=== PATIENT | female | born 1990 | race Caucasian/White ===

== ENCOUNTER 2018-02-25 15:02 | Emergency (ER) | payer OTHER ==
[2018-02-25 15:12] VITALS: BP 123/83
--- NOTE | 2018-02-25 15:21 | UC ---
Throat Pain/Nasal Mickey HPI - HPI Summary HPI Summary: cold symptoms with nasal congestion for 2 weeks then 5-6 days ago right side ear ache and sore throat - History of Current Complaint Chief Complaint: UCGeneralIllness Stated Complaint: SORE THROAT Time Seen by Provider: 02/25/18 15:13 Hx Obtained From: Patient Hx Last Menstrual Period: 3-4 weeks ago ?: No Onset/Duration: Gradual Onset, Lasting Weeks - has been sick with uri for 2 weeks, Worse Since - past 6 days Severity: Moderate Pain Intensity: 5 Pain Scale Used: 0-10 Numeric Cough: Nonproductive Associated Signs & Symptoms: Positive: Negative - Allergies/Home Medications Allergies/Adverse Reactions: Allergies Allergy/AdvReac Type Severity Reaction Status Date / Time No Known Allergies Allergy Verified 02/25/18 15:12 Home Medications: Home Medications Pheniramine/P-Eph/Acetaminophn [Theraflu Flu & Sore Throat] 1 arabella PO 02/25/18 [ History] PMH/Surg Hx/FS Hx/Imm Hx Previously Healthy: Yes - Surgical History Surgical History: Yes Surgery Procedure, Year, and Place: 1998 TONSILECTOMY ADENOIDECTOMY. Cholecystectomy Apr 11 2012 - Family History Known Family History: Positive: Hypertension, Diabetes - Social History Occupation: Employed Full-time Lives: With Family Alcohol Use: Rare Substance Use Type: None Smoking Status (MU): Former Smoker Length of Time of Smoking/Using Tobacco: 11 YEAR HX 1 PACK EVERY 3 DAYS Have You Smoked in the Last Year: Yes When Did the Patient Quit Smoking/Using Tobacco: SUMMER 2014 - Immunization History Most Recent Influenza Vaccination: SEVERAL YEARS AGO Most Recent Tetanus Shot: UTD Review of Systems All Other Systems Reviewed And Are Negative: Yes Constitutional: Positive: Negative Skin: Positive: Negative Eyes: Positive: Negative ENT: Positive: Sore Throat - right side, Ear Ache - right Respiratory: Positive: Negative Cardiovascular: Positive: Negative Gastrointestinal: Positive: Negative Genitourinary: Positive: Negative Motor: Positive: Negative Neurovascular: Positive: Negative Musculoskeletal: Positive: Negative Neurological: Positive: Negative Psychological: Positive: Negative Is Patient Immunocompromised?: No Physical Exam Triage Information Reviewed: Yes Appearance: Well-Appearing, No Pain Distress, Well-Nourished Vital Signs: Initial Vital Signs Temp 97.5 F 02/25/18 15:07 Pulse 86 02/25/18 15:07 Resp 18 02/25/18 15:07 BP 123/83 02/25/18 15:07 Pulse Ox 99 02/25/18 15:07 Vital Signs Reviewed: Yes Eye Exam: Normal Eyes: Positive: Conjunctiva Clear ENT Exam: Normal ENT: Positive: Normal ENT inspection, Hearing grossly normal, Pharynx normal, TMs normal - left, TM bulging - right, Uvula midline. Negative: Tonsillar swelling, Tonsillar exudate, Trismus, Muffled voice, Hoarse voice, Dental tenderness, Sinus tenderness Dental Exam: Normal Neck exam: Normal Neck: Positive: Supple, Nontender, No Lymphadenopathy Respiratory Exam: Normal Respiratory: Positive: Chest non-tender, Lungs clear, Normal breath sounds, No respiratory distress, No accessory muscle use Cardiovascular Exam: Normal Cardiovascular: Positive: RRR, No Murmur, Pulses Normal, Brisk Capillary Refill Musculoskeletal Exam: Normal Musculoskeletal: Positive: Strength Intact, ROM Intact, No Edema Neurological Exam: Normal Neurological: Positive: Alert, Muscle Tone Normal Psychological Exam: Normal Skin Exam: Normal Throat Pain/Nasal Course/Dx - Course Assessment/Plan: sudafed and robitussion, tylenol, ibuprofen, amoxicillin increase fluids follow with pcp prn - Differential Dx/Diagnosis Provider Diagnoses: right serous otitis media Discharge - Sign-Out/Discharge Documenting (check all that apply): Patient Departure All imaging exams completed and their final reports reviewed: No Studies - Discharge Plan Condition: Stable Disposition: HOME Prescriptions: Amoxicillin PO (*) [Amoxicillin 875 MG (*)] 875 mg PO BID #20 tab Patient Education Materials: Decongestant/Expectorant (By mouth), Serous Otitis Media (ED) Referrals: [facility] [place] [facility] [place]] - If Needed - Billing Disposition and Condition Condition: STABLE Disposition: Home - Attestation Statements Provider Attestation: I was available for consult. This patient was seen by the ENRIQUE. The patient was not presented to, seen by, or examined by me. -Caro
== END 2018-02-25 15:34 | disposition home or self-care (01) ==
LOC: UCEAST 15:02
DX: H65.91 Unspecified nonsuppurative otitis media, right ear (principal); Z87.891 Personal history of nicotine dependence
CPT/HCPCS: 99212; G0463

== ENCOUNTER 2018-08-27 08:23 | Emergency (ER) | payer OTHER ==
--- NOTE | 2018-08-27 08:41 | ED ---
Complex/Multi-Sys Presentation - HPI Summary HPI Summary: This patient is a 27 year old F presenting to ED with a chief complaint of pain that starts in his L neck and down under her L arm and then to the upper back and shoulder since this morning when she woke up with it. The CC is described as shooting pain and pressure. The patient rates the pain 4/10 in severity. Symptoms aggravated by deep breaths. Symptoms alleviated by sitting straight and putting pressure on the area under her L arm. Patient reports numbness on her L upper arm and in her L fingers. Patient denies recent injury. She does work at the [employer] and is constantly lifting crates of apples so she might have pulled something. - History Of Current Complaint Chief Complaint: EDGeneral Time Seen by Provider: 08/27/18 08:31 Hx Obtained From: Patient Onset/Duration: Sudden Onset, Lasting Hours, Still Present Timing: Constant Severity Currently: Mild - 4/10 Severity Initially: Mild Location: Pain At: - starts in the L neck, Radiates To: - down under the L arm and to the upper back and shoulder Aggravating Factor(s): deep breaths Alleviating Factor(s): sitting straight and putting pressure on the area under her L arm Associated Signs And Symptoms: Positive: Other - Patient reports numbness on her L upper arm and in her L fingers. Patient denies recent injury. - Allergies/Home Medications Allergies/Adverse Reactions: Allergies Allergy/AdvReac Type Severity Reaction Status Date / Time No Known Allergies Allergy Verified 08/27/18 08:30 Home Medications: Home Medications NK [No Home Medications Reported] 08/27/18 [History Confirmed 08/27/18] PMH/Surg Hx/FS Hx/Imm Hx Endocrine/Hematology History: Denies: Hx Diabetes, Hx Thyroid Disease Cardiovascular History: Denies: Hx Hypertension Respiratory History: Denies: Hx Asthma, Hx Chronic Obstructive Pulmonary Disease (COPD) GI History: Denies: Hx Ulcer Sensory History: Denies: Hx Contacts or Glasses, Hx Hearing Aid Opthamlomology History: Denies: Hx Contacts or Glasses - Surgical History Surgery Procedure, Year, and Place: 1997 TONSILECTOMY ADENOIDECTOMY. Cholecystectomy Apr 11 2012 Hx Anesthesia Reactions: No Infectious Disease History: No Infectious Disease History: Denies: Hx Clostridium Difficile, Hx Hepatitis, Hx Human Immunodeficiency Virus (HIV), Hx of Known/Suspected MRSA, Hx Shingles, Hx Tuberculosis, Hx Known/ Suspected VRE, Hx Known/Suspected VRSA, History Other Infectious Disease, Traveled Outside the [place] in Last 30 Days - Family History Known Family History: Positive: Hypertension, Diabetes - Social History Alcohol Use: Rare Substance Use Type: Reports: None Smoking Status (MU): Former Smoker Length of Time of Smoking/Using Tobacco: 11 YEAR HX 1 PACK EVERY 3 DAYS Have You Smoked in the Last Year: Yes Review of Systems Positive: Other - pain that starts in his L neck and down under her L arm and then to the upper back and shoulder; denies any recent injury but 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 FROM. Respiratory: Clear to auscultation, no signs of respiratory distress Cardiovascular: Normal S1, S2. No murmurs. Normal distal pulses in tibial and radial bilaterally. Abdomen: Soft, nontender, normal active bowel sounds present Musculoskeletal: Strength/ROM Intact. FROM of the L shoulder. Mild tenderness over the L upper chest near the shoulder. Neurological: A&Ox3, awake and alert, mentation is normal, speech is fluent and appropriate Psychiatric: affect is normal, does not appear anxious or depressed Triage Information Reviewed: Yes Vital Signs On Initial Exam: Initial Vitals Temp Pulse Resp BP Pulse Ox 98.5 F 75 18 133/81 97 08/27/18 08:25 08/27/18 08:25 08/27/18 08:25 08/27/18 08:25 08/27/18 08:25 Vital Signs Reviewed: Yes Diagnostics - Vital Signs Vital Signs Temp Pulse Resp BP Pulse Ox 08/27/18 08:25 98.5 F 75 18 133/81 97 - Laboratory Lab Statement: Any lab studies that have been ordered have been reviewed, and results considered in the medical decision making process. - Radiology CXR Radiology Interpretation Completed By: Radiologist Summary of Radiographic Findings: NO EVIDENCE FOR ACTIVE CARDIOPULMONARY DISEASE. Dr. Ahmadi has reviewed this radiology report. L shoulder XR Radiology Interpretation Completed By: Radiologist Summary of Radiographic Findings: Negative exam. Dr. Ahmadi has reviewed this radiology report. Re-Evaluation - Re-Evaluation First Eval Re-Evaluation Time: 09:20 Comment: Discussed results and plan for discharge. Patient understands and agrees with this plan. Complex Multi-Symp Course/Dx Assessment/Plan: This patient is a 27 year old F presenting to ED with a chief complaint of pain that starts in his L neck and down under her L arm and then to the upper back and shoulder since this morning when she woke up with it. CXR reveals NO EVIDENCE FOR ACTIVE CARDIOPULMONARY DISEASE. L shoulder XR reveals negative exam. Patient will be discharged with dx of chest wall pain. Patient understands and agrees with this plan. - Diagnoses Differential Diagnoses/HQI/PQRI: Other - chest wall pain Provider Diagnoses: Chest wall pain Discharge - Sign-Out/Discharge Documenting (check all that apply): Patient Departure - discharge Patient Received Moderate/Deep Sedation with Procedure: No - Discharge Plan Condition: Stable Disposition: HOME Patient Education Materials: Chest Wall Pain (ED) Referrals: [facility] [Outside] - 3 Days (if not better) - Billing Disposition and Condition Condition: STABLE Disposition: Home - Attestation Statements Document Initiated by Vane: Yes Documenting Scribe: Ajay Wiseman Provider For Whom Vane is Documenting (Include Credential): Reyes Ahmadi MD Scribe Attestation: Ajay Velasco, scribed for Reyes Ahmadi MD on 08/27/18 at 1704. Scribe Documentation Reviewed: Yes Provider Attestation: The documentation as recorded by the Ajay adair accurately reflects the service I personally performed and the decisions made by me, Reyes Ahmadi MD Status of Scribe Document: Viewed
[2018-08-27 09:25] VITALS: BP 112/67
== END 2018-08-27 09:24 | disposition home or self-care (01) ==
LOC: ED 08:23
DX: R07.89 Other chest pain (principal); Z87.891 Personal history of nicotine dependence
CPT/HCPCS: 71046; 99281

== ENCOUNTER 2019-02-04 12:42 | Emergency (ER) | payer OTHER ==
[2019-02-04 13:16] VITALS: BP 123/62
--- NOTE | 2019-02-04 13:32 | UC ---
Respiratory Complaint HPI - HPI Summary HPI Summary: 28-year-old female who has had cold symptoms for approximately 2 weeks. She states it started in her head with head congestion sinus pressure but that has resolved and it is now in her lungs as more of a dry harsh cough. She states she has some chest soreness when she coughs. Cough is nonproductive. She no longer has a fever. He is a nonsmoker. - History of Current Complaint Chief Complaint: UCRespiratory Stated Complaint: COUGH Time Seen by Provider: 02/04/19 13:32 Hx Obtained From: Patient Hx Last Menstrual Period: 01/19/19 ?: No Onset/Duration: Gradual Onset Timing: Intermittent Episodes Severity Initially: Mild Severity Currently: Mild Pain Intensity: 4 Character: Cough: Nonproductive Aggravating Factors: Nothing Alleviating Factors: Nothing Associated Signs And Symptoms: Positive: URI, Nasal Congestion, Sinus Discomfort - Patient states she had head congestion and sinus discomfort the first few days but that has resolved. She mostly now has a harsh cough. - Allergies/Home Medications Allergies/Adverse Reactions: Allergies Allergy/AdvReac Type Severity Reaction Status Date / Time No Known Allergies Allergy Verified 02/04/19 13:16 Home Medications: Home Medications guaiFENesin [Mucinex] 1 tab PO ONCE PRN 02/04/19 [History Confirmed 02/04/19] PMH/Surg Hx/FS Hx/Imm Hx Previously Healthy: Yes - Surgical History Surgical History: Yes Surgery Procedure, Year, and Place: 1997 TONSILECTOMY ADENOIDECTOMY. Cholecystectomy Apr 11 2012 - Family History Known Family History: Positive: Hypertension, Diabetes - Social History Alcohol Use: Occasionally Substance Use Type: None Smoking Status (MU): Former Smoker Length of Time of Smoking/Using Tobacco: 11 YEAR HX 1 PACK EVERY 3 DAYS Have You Smoked in the Last Year: Yes When Did the Patient Quit Smoking/Using Tobacco: SUMMER 2014 - Immunization History Most Recent Influenza Vaccination: SEVERAL YEARS AGO Most Recent Tetanus Shot: UTD Review of Systems All Other Systems Reviewed And Are Negative: Yes Constitutional: Positive: Fever - Fever in the beginning of symptoms but no longer. ENT: Positive: Nasal Discharge, Sinus Congestion - Head and sinus congestion and pain earlier in the illness but no longer., Sinus Pain/Tenderness Respiratory: Positive: Cough - Nonproductive cough with some chest wall soreness when she is coughing. Is Patient Immunocompromised?: No Physical Exam Triage Information Reviewed: Yes Appearance: Well-Appearing, No Pain Distress, Well-Nourished Vital Signs: Initial Vital Signs Temp 98.8 F 02/04/19 13:12 Pulse 89 02/04/19 13:12 Resp 18 02/04/19 13:12 BP 123/62 02/04/19 13:12 Pulse Ox 97 02/04/19 13:12 Vital Signs Reviewed: Yes Eyes: Positive: Conjunctiva Clear ENT: Positive: Hearing grossly normal, Pharynx normal, Nasal drainage - Minimal clear nasal coryza. Sinuses nontender, TMs normal, Uvula midline Neck exam: Normal Neck: Positive: Supple, Nontender, No Lymphadenopathy Respiratory: Positive: Lungs clear, Normal breath sounds, No respiratory distress, No accessory muscle use - Harsh nonproductive cough. Cardiovascular: Positive: RRR, No Murmur, Pulses Normal, Brisk Capillary Refill Musculoskeletal Exam: Normal Neurological Exam: Normal Psychological Exam: Normal Skin Exam: Normal Respiratory Course/Dx - Course Course Of Treatment: Chest x-ray:FINDINGS: The lungs are clear. There is no pleural effusion. The cardiomediastinal silhouette is within normal limits. The upper abdominal contents are normal. Osseous structures are unremarkable. IMPRESSION: No acute cardiopulmonary process by radiograph The patient is comfortable here although she does have a harsh cough. Abdomen to treat her with 5 days of prednisone 40 mg daily. I'm also going to give her prescription for benzonatate to use 3 times a day over the next few days as needed for cough. - Differential Dx/Diagnosis Provider Diagnosis: URI (upper respiratory infection) Discharge ED - Sign-Out/Discharge Documenting (check all that apply): Patient Departure All imaging exams completed and their final reports reviewed: Yes - Discharge Plan Condition: Good Disposition: HOME Prescriptions: Benzonatate CAP* [Tessalon 100 MG CAP*] 100 mg PO TID PRN 7 Days #21 cap PRN Reason: Cough predniSONE [Prednisone 20 MG TAB] 40 mg PO DAILY 5 Days #10 tablet Patient Education Materials: Upper Respiratory Infection (DC) Referrals: No Primary Care Phys,NOPCP [Primary Care Provider] - [facility] [Outside] Additional Instructions: Increase fluids, take the prednisone with food, follow-up with [facility] if no improvement by Monday or if you start running a fever. - Billing Disposition and Condition Condition: GOOD Disposition: Home
== END 2019-02-04 14:15 | disposition home or self-care (01) ==
LOC: UCEAST 12:42
DX: J06.9 Acute upper respiratory infection, unspecified (principal); Z87.891 Personal history of nicotine dependence
CPT/HCPCS: 71046; 99212; G0463

== ENCOUNTER 2019-05-23 15:41 | Emergency (ER) | payer OTHER ==
[2019-05-23 17:37] LABS: ABS Basophils 0.1 10^3/ul (0-0.2); ABS Eosinophils 0.1 10^3/ul (0-0.6); ABS Lymphocytes 3.3 10^3/ul (1.0-4.8); ABS Monocytes 0.6 10^3/ul (0-0.8); ABS Neutrophils 7.3 10^3/ul (1.5-7.7); Hematocrit 39 % (35-47); Hemoglobin 13.1 g/dL (12.0-16.0); Mean Corpuscular HGB Conc 34 g/dL (31-36); Mean Corpuscular Hemoglobin 30 pg (27-31); Mean Corpuscular Volume 89 fL (80-97); Mean Platelet Volume 7.3 fL (7.4-10.4); Nucleated Red Blood Cells % 0.1; Platelet Count 323 10^3/uL (150-450); Red Cell Distribution Width 13 % (10-15); White Blood Count 11.5 10^3/uL (3.5-10.8)
[2019-05-23 17:55] LABS: ALT 16 U/L (7-52); AST 23 U/L (13-39); Albumin 4.2 g/dL (3.2-5.2); Albumin/Globulin Ratio 1.4 (1-3); Alkaline Phosphatase 68 U/L (34-104); Anion Gap 6 mmol/L (2-11); BUN/Creatinine Ratio 17.1 (8-20); Blood Urea Nitrogen 13 mg/dL (6-24); CO2 Carbon Dioxide 27 mmol/L (22-32); Calcium 9.1 mg/dL (8.6-10.3); Chloride 104 mmol/L (101-111); EGFR African American 108.9 (>60); Globulin 2.9 g/dL (2-4); Glucose 93 mg/dL (70-100); Potassium 4.1 mmol/L (3.5-5.0); Sodium 137 mmol/L (135-145); Total Protein 7.1 g/dL (6.4-8.9)
[2019-05-23 18:01] LABS: HCG Pregnancy < 0.60 mIU/mL
--- NOTE | 2019-05-23 18:12 | ED ---
GI/ HPI - HPI Summary HPI Summary: 28 year old female presents with vaginal bleeding for the past 2 days. She states she has been passing large clots. She denies any pain. States her period is very consistent she gets it every month between the 12-14. She did have a history of where she bleed for 2 months when she was younger and ended up needing a blood transfusion. She denies any dizziness currently. No palpitations. No headache. States she feels fine. She states she passes a blood clots every half hour without any pain. She does have a history of ovarian cysts. No history of fibroids. States that she can't get . She denies any urinary symptoms. Has no medical conditions. - History of Current Complaint Chief Complaint: EDVaginalBleeding Time Seen by Provider: 05/23/19 17:52 Stated Complaint: BLOOD CLOTS Hx Last Menstrual Period: 01/19/19 Pain Intensity: 0 - Allergy/Home Medications Allergies/Adverse Reactions: Allergies Allergy/AdvReac Type Severity Reaction Status Date / Time No Known Allergies Allergy Verified 05/23/19 15:56 Home Medications: Home Medications LevoCETirizine TAB (NF) [Xyzal TAB (NF)] 5 mg PO DAILY PRN 05/23/19 [History Confirmed 05/23/19] PMH/Surg Hx/FS Hx/Imm Hx Endocrine/Hematology History: Denies: Hx Diabetes, Hx Thyroid Disease Cardiovascular History: Denies: Hx Hypertension Respiratory History: Denies: Hx Asthma, Hx Chronic Obstructive Pulmonary Disease (COPD) GI History: Denies: Hx Ulcer Sensory History: Denies: Hx Contacts or Glasses, Hx Hearing Aid Opthamlomology History: Denies: Hx Contacts or Glasses - Surgical History Surgery Procedure, Year, and Place: 1997 TONSILECTOMY ADENOIDECTOMY. Cholecystectomy Apr 11 2012 Hx Anesthesia Reactions: No Infectious Disease History: No Infectious Disease History: Denies: Hx Clostridium Difficile, Hx Hepatitis, Hx Human Immunodeficiency Virus (HIV), Hx of Known/Suspected MRSA, Hx Shingles, Hx Tuberculosis, Hx Known/ Suspected VRE, Hx Known/Suspected VRSA, History Other Infectious Disease, Traveled Outside the [place] in Last 30 Days - Family History Known Family History: Positive: Hypertension, Diabetes - Social History Alcohol Use: Occasionally Substance Use Type: Reports: None Smoking Status (MU): Former Smoker Length of Time of Smoking/Using Tobacco: 11 YEAR HX 1 PACK EVERY 3 DAYS Have You Smoked in the Last Year: Yes Review of Systems Negative: Fever Negative: Chest Pain Negative: Shortness Of Breath Positive: Other - vaginal bleeding. Negative: Abdominal Pain All Other Systems Reviewed And Are Negative: Yes Physical Exam Triage Information Reviewed: Yes Vital Signs On Initial Exam: Initial Vitals Temp Pulse Resp BP Pulse Ox 98.1 F 81 18 163/97 98 05/23/19 15:51 05/23/19 15:51 05/23/19 15:51 05/23/19 15:51 05/23/19 15:51 Vital Signs Reviewed: Yes Appearance: Positive: Well-Appearing Skin: Positive: Warm, Dry Head/Face: Positive: Normal Head/Face Inspection Eyes: Positive: Normal, Conjunctiva Clear ENT: Positive: Pharynx normal Respiratory/Lung Sounds: Positive: Clear to Auscultation, Breath Sounds Present Cardiovascular: Positive: Normal, RRR Abdomen Description: Positive: Nontender, Soft Bowel Sounds: Positive: Present Musculoskeletal: Positive: Normal Neurological: Positive: Normal Psychiatric: Positive: Normal Procedures - Sedation Patient Received Moderate/Deep Sedation with Procedure: No Diagnostics - Vital Signs Vital Signs Temp Pulse Resp BP Pulse Ox 05/23/19 15:51 98.1 F 81 18 163/97 98 - Laboratory Lab Results: Lab Results 05/23/19 05/23/19 Range/Units 17:27 17:27 WBC 11.5 H (3.5-10.8) 10^3/uL RBC 4.40 (3.70-4.87) 10^6 /uL Hgb 13.1 (12.0-16.0) g/dL Hct 39 (35-47) % MCV 89 (80-97) fL MCH 30 (27-31) pg MCHC 34 (31-36) g/dL RDW 13 (10-15) % Plt Count 323 (150-450) 10^3/uL MPV 7.3 L (7.4-10.4) fL Neut % (Auto) 63.7 % Lymph % (Auto) 29.0 % [place] % (Auto) 5.5 % Eos % (Auto) 1.0 % Baso % (Auto) 0.8 % Absolute Neuts (auto) 7.3 (1.5-7.7) 10^3/ul Absolute Lymphs (auto) 3.3 (1.0-4.8) 10^3/ul Absolute Monos (auto) 0.6 (0-0.8) 10^3/ul Absolute Eos (auto) 0.1 (0-0.6) 10^3/ul Absolute Basos (auto) 0.1 (0-0.2) 10^3/ul Absolute Nucleated RBC 0.0 10^3/ul Nucleated RBC % 0.1 Sodium 137 (135-145) mmol/L Potassium 4.1 (3.5-5.0) mmol/L Chloride 104 (101-111) mmol/L Carbon Dioxide 27 (22-32) mmol/L Anion Gap 6 (2-11) mmol/L BUN 13 (6-24) mg/dL Creatinine 0.76 (0.51-0.95) mg/dL Est GFR ( Amer) 108.9 (>60) Est GFR (Non-Af Amer) 90.0 (>60) BUN/Creatinine Ratio 17.1 (8-20) Glucose 93 (70-100) mg/dL Calcium 9.1 (8.6-10.3) mg/dL Total Bilirubin 0.20 (0.2-1.0) mg/dL AST 23 (13-39) U/L ALT 16 (7-52) U/L Alkaline Phosphatase 68 (34-104) U/L Total Protein 7.1 (6.4-8.9) g/dL Albumin 4.2 (3.2-5.2) g/dL Globulin 2.9 (2-4) g/dL Albumin/Globulin Ratio 1.4 (1-3) Beta HCG, Quant < 0.60 mIU/mL Result Diagrams: 05/23/19 17:27 05/23/19 17:27 Lab Statement: Any lab studies that have been ordered have been reviewed, and results considered in the medical decision making process. GIGU Course/Dx - Course Course Of Treatment: 28 year old female presents with vaginal bleeding for the past 2 days. She states she has been passing large clots. She denies any pain. States her period is very consistent she gets it every month between the 12-14. She did have a history of where she bleed for 2 months when she was younger and ended up needing a blood transfusion. She denies any dizziness currently. No palpitations. No headache. States she feels fine. She states she passes a blood clots every half hour without any pain. She does have a history of ovarian cysts. No history of fibroids. States that she can't get . She denies any urinary symptoms. Has no medical conditions. On exam nontender abd. H&H is normal. Vitals are stable. Discussed take ibuprofen for bleeding. Told to follow-up with [facility] if bleeding continues may need to go on control. Patient understands and agrees with the plan. - Diagnoses Differential Diagnoses - Female: Ovarian Cyst, , Other - anemia Provider Diagnoses: Dysfunctional uterine bleeding Discharge ED - Sign-Out/Discharge Documenting (check all that apply): Patient Departure - Discharge Plan Condition: Good Disposition: HOME Patient Education Materials: Dysfunctional Uterine Bleeding (ED) Referrals: No Primary Care Phys,NOPCP [Primary Care Provider] - Additional Instructions: take ibuprofen every 6-8 hours as needed for pain or bleeding apply heat Follow up with [facility] Return to ED if develop any new or worsening symptoms - Billing Disposition and Condition Condition: GOOD Disposition: Home
[2019-05-23 18:30] VITALS: BP 128/72
== END 2019-05-23 18:29 | disposition home or self-care (01) ==
LOC: ED 15:41
DX: N93.8 Other specified abnormal uterine and vaginal bleeding (principal); Z87.891 Personal history of nicotine dependence; Z79.899 Other long term (current) drug therapy; Z85.43 Personal history of malignant neoplasm of ovary
CPT/HCPCS: 36415; 80053; 84702; 85025; 99282